=== PATIENT | female | born 1955 | race American Indian/Alaskan Native ===

== ENCOUNTER 2020-11-11 05:38 | Emergency (ER) | payer MEDICARE ==
--- NOTE | 2020-11-11 06:22 | Cat Scan Report ---
CT head without contrast INDICATION : Stroke symptoms. TECHNIQUE: Axial imaging performed from the skull apex through the skull base without the use of con trast. All CT scans at this location are performed using CT dose reduction for ALARA by means of aut omated exposure control. COMPARISON: None FINDINGS: Parenchyma: No mass, stroke or hemorrhage. Hyperdense left MCA sign. Physiologic calcification is see n at the basal ganglia. Ventricles: Ventricles are normal in size and appear symmetric. Soft tissues: Soft tissues including the orbits appear normal. Bones: No acute osseous abnormality. Sinuses: Sinuses and mastoid air cells are clear. IMPRESSION: Hyperdense left MCA sign. CODE STROKE: Time of Communication (MAINTENANCE SPECIALIST/CDT): 5:16 AM Central standard time. Licensed Practitioner Receiving Report: Dr. Liu Signer Name: Donnell Pelaez MD Signed: 11/11/2020 6:18 AM Workstation Name: [id number]
[2020-11-11] MEDS ORDERED: SODIUM CHLORIDE 0.9% 50 ML IVPB IV ONE (06:38)
[2020-11-11] MEDS ORDERED: ALTEPLASE 100 MG INJ KIT IV ONE ×2 (06:38)
--- NOTE | 2020-11-11 06:38 | Emergency Department Report ---
ED Neuro Deficit HPI - General Stated Complaint: UNRESPONDSIVE Time Seen by Provider: 11/11/20 05:45 Source: patient, EMS - History of Present Illness Initial Comments: 65-year-old female, history of hypertension, presents to ED with altered mental status. states they drove from [place] to [place] last night, evacuating the city due to [place]. He reports upon arrival to [place], patient was altered. Prior to this patient was speaking throughout the drive. Last known well time 5 AM. Patient does not appear to be moving her right side. Patient is nonverbal at this time. denies any history of CVA. Patient not taking any blood thinners. reports patient received COVID-19 vaccine, both doses, back in June 2020. -: This morning Last Observed Normal: 05:00 Location: speech, left arm, left leg Presenting Symptoms: Present: Weak/Paralyzed One Side, Altered Mental Status History of same: No Improves With: none Worsens With: none On Anticoagulants: No Treatments Prior to Arrival: none - Related Data Home Medications: Home Medications Medication Instructions Recorded Confirmed Last Taken Irbesartan/Hydrochlorothiazide 1 each PO QDAY 11/11/20 11/11/20 Unknown [Irbesartan-Hctz 150-12.5 mg Tb] Metoprolol Succinate [Kapspargo 50 mg PO QDAY 11/11/20 11/11/20 Unknown Sprinkle] Allergies/Adverse Reactions: Allergies Allergy/AdvReac Type Severity Reaction Status Date / Time No Known Allergies Allergy Unverified 11/11/20 06:45 ED Review of Systems ROS: Stated complaint: UNRESPONDSIVE Other details as noted in HPI Comment: Unobtainable due to pts medical conditions ED Past Medical Hx - Medications Home Medications: Home Medications Medication Instructions Recorded Confirmed Last Taken Type Irbesartan/Hydrochlorothiazide 1 each PO QDAY 11/11/20 11/11/20 Unknown History [Irbesartan-Hctz 150-12.5 mg Tb] Metoprolol Succinate [Kapspargo 50 mg PO QDAY 11/11/20 11/11/20 Unknown History Sprinkle] ED Neuro Physical Exam - General General appearance: lethargic Suspected Stroke: Yes - Head Head exam: Present: atraumatic, normocephalic - Eye Eye exam: Present: PERRL, other (leftward gaze deviation) - ENT ENT exam: Present: mucous membranes moist - Neck Neck exam: Present: normal inspection - Respiratory Respiratory exam: Present: normal lung sounds bilaterally. Absent: respiratory distress - Cardiovascular Cardiovascular Exam: Present: regular rate, normal rhythm - GI/Abdominal GI/Abdominal exam: Present: soft. Absent: distended, tenderness - Extremities Exam Extremities exam: Present: normal inspection - Neurological Exam Neurological exam: Present: altered - NIHSS Assessment Interval: 24 hours post onset of symptoms +-20 minutes 1a. Level of Consciousness: arousable/minor stimuli 1b. LOC Questions: answers no questions correctly 1c. LOC Commands: performs no tasks correctly 2. Best Gaze: forced deviation 3. Visual: no visual loss 4. Facial Palsy: minor paralysis 5b. Motor Arm Right: no movement 5a. Motor Arm Left: no drift 6a. Motor Leg Left: no drift 6b. Motor Leg Right: no movement 7. Limb Ataxia: absent 8. Sensory: mild/moderate sensory loss 9. Best Language: mute/global aphasia 10. Dysarthria: mute/anarrthric 11. Extinction/Inattention: visual/tactile inattention Total Score: 23 Stroke Severity: Severe Stroke - Skin Skin exam: Present: warm, dry, intact, normal color ED Course Vital Signs 11/11/20 11/11/20 11/11/20 06:10 06:15 06:31 Pulse Rate 72 84 Pulse Rate [ Left Arm] Respiratory 12 12 14 Rate Respiratory Rate [Left Arm] Blood Pressure 144/82 144/82 Blood Pressure [Left Arm] O2 Sat by Pulse 96 Oximetry O2 Sat by Pulse Oximetry [Left Arm] 11/11/20 11/11/20 11/11/20 06:45 06:55 06:56 Pulse Rate 87 82 80 Pulse Rate [ Left Arm] Respiratory 17 Rate Respiratory Rate [Left Arm] Blood Pressure 133/92 130/85 130/85 Blood Pressure [Left Arm] O2 Sat by Pulse 98 Oximetry O2 Sat by Pulse Oximetry [Left Arm] 11/11/20 11/11/20 11/11/20 07:01 07:15 07:16 Pulse Rate 69 68 Pulse Rate [ 75 Left Arm] Respiratory 14 14 Rate Respiratory 17 Rate [Left Arm] Blood Pressure 130/85 123/79 Blood Pressure 136/83 [Left Arm] O2 Sat by Pulse 99 Oximetry O2 Sat by Pulse 98 Oximetry [Left Arm] 11/11/20 11/11/20 11/11/20 07:20 07:30 07:31 Pulse Rate 88 Pulse Rate [ 71 Left Arm] Respiratory 18 Rate Respiratory 18 Rate [Left Arm] Blood Pressure 140/83 Blood Pressure 127/70 [Left Arm] O2 Sat by Pulse 100 97 Oximetry O2 Sat by Pulse 98 Oximetry [Left Arm] 11/11/20 11/11/20 11/11/20 07:45 08:00 08:01 Pulse Rate 85 78 Pulse Rate [ 84 79 Left Arm] Respiratory 11 L 11 L Rate Respiratory 18 18 Rate [Left Arm] Blood Pressure 125/71 123/79 Blood Pressure 122/83 137/92 [Left Arm] O2 Sat by Pulse 98 Oximetry O2 Sat by Pulse 100 100 Oximetry [Left Arm] 11/11/20 11/11/20 11/11/20 08:05 08:15 08:30 Pulse Rate 72 75 Pulse Rate [ 52 L 59 L Left Arm] Respiratory 15 Rate Respiratory 14 15 Rate [Left Arm] Blood Pressure 141/98 Blood Pressure 141/98 139/73 [Left Arm] O2 Sat by Pulse 89 Oximetry O2 Sat by Pulse 100 99 Oximetry [Left Arm] 11/11/20 11/11/20 11/11/20 08:31 08:45 09:00 Pulse Rate 52 L 53 L Pulse Rate [ 80 57 L Left Arm] Respiratory 13 14 Rate Respiratory 14 14 Rate [Left Arm] Blood Pressure 153/78 128/73 Blood Pressure 128/73 145/71 [Left Arm] O2 Sat by Pulse 100 Oximetry O2 Sat by Pulse 100 100 Oximetry [Left Arm] 11/11/20 11/11/20 09:01 09:30 Pulse Rate 72 Pulse Rate [ 90 Left Arm] Respiratory 13 Rate Respiratory 18 Rate [Left Arm] Blood Pressure 145/71 Blood Pressure 128/67 [Left Arm] O2 Sat by Pulse 100 Oximetry O2 Sat by Pulse 100 Oximetry [Left Arm] - Reevaluation(s) Reevaluation #1: 11/11/20 06:36 at bedside, along with teleneurologist, Dr. Kemp. States last known well time was 5 AM. Will give TPA. Reevaluation #2: 11/11/20 08:41 Pt improving, showing movement in right leg. - Consultations Consultation #1: 11/11/20 08:39 [place] stroke team contacted. Spoke with Elizabeth Ray and Maximiliano. Looking for a bed for pt. Will call back. 11/11/20 08:50 Dr Ray states bed available at [facility]. Will contact [facility] [employer] to see if pt can be transported by helicopter. 11/11/20 08:57 Unable to fly secondary to weather. Patient will be transported by ground. - Lab Data Result diagrams: 11/11/20 06:17 11/11/20 06:17 Lab Results 11/11/20 11/11/20 11/11/20 Range/Units 06:17 06:17 06:17 WBC 5.9 (4.5-11.0) K/mm3 RBC 4.07 (3.65-5.03) M/mm3 Hgb 11.3 (10.1-14.3) gm/dl Hct 34.5 (30.3-42.9) % MCV 85 (79-97) fl MCH 28 (28-32) pg MCHC 33 (30-34) % RDW 14.0 (13.2-15.2) % Plt Count 187 (140-440) K/mm3 Lymph % (Auto) 20.9 (13.4-35.0) % [place] % (Auto) 7.0 (0.0-7.3) % Eos % (Auto) 0.5 (0.0-4.3) % Baso % (Auto) 0.7 (0.0-1.8) % Lymph # (Auto) 1.2 (1.2-5.4) K/mm3 [place] # (Auto) 0.4 (0.0-0.8) K/mm3 Eos # (Auto) 0.0 (0.0-0.4) K/mm3 Baso # (Auto) 0.0 (0.0-0.1) K/mm3 Seg Neutrophils % 70.9 H (40.0-70.0) % Seg Neutrophils # 4.2 (1.8-7.7) K/mm3 PT 13.7 (12.2-14.9) Sec. INR 0.99 (0.87-1.13) APTT 28.6 (24.2-36.6) Sec. Thrombin Time 16.7 (15.1-19.6) Sec. Sodium 138 (137-145) mmol/L Potassium 3.8 (3.6-5.0) mmol/L Chloride 101.2 (98-107) mmol/L Carbon Dioxide 26 (22-30) mmol/L Anion Gap 15 mmol/L BUN 20 H (7-17) mg/dL Creatinine 0.8 (0.6-1.2) mg/dL Estimated GFR > 60 ml/min BUN/Creatinine Ratio 25 % Glucose 120 H (65-100) mg/dL Calcium 9.7 (8.4-10.2) mg/dL Total Bilirubin 0.50 (0.1-1.2) mg/dL AST 23 (5-40) units/L ALT 12 (7-56) units/L Alkaline Phosphatase 75 (35-129) units/L Ammonia (25-60) umol/L Total Creatine Kinase 276 H (30-135) units/L CK-MB (CK-2) 5.9 H (0.0-4.0) ng/mL CK-MB (CK-2) Rel Index 2.1 (0-4) Troponin T 0.228 H* (0.00-0.029) ng/mL Total Protein 7.4 (6.3-8.2) g/dL Albumin 4.6 (3.9-5) g/dL Albumin/Globulin Ratio 1.6 % Triglycerides 59 (2-149) mg/dL Cholesterol 215 H (50-199) mg/dL LDL Cholesterol Direct 124 (50-130) mg/dL HDL Cholesterol 98 H (40-59) mg/dL Cholesterol/HDL Ratio 2.19 % Plasma/Serum Alcohol (0-0.07) % 11/11/20 11/11/20 Range/Units 06:17 06:17 WBC (4.5-11.0) K/mm3 RBC (3.65-5.03) M/mm3 Hgb (10.1-14.3) gm/dl Hct (30.3-42.9) % MCV (79-97) fl MCH (28-32) pg MCHC (30-34) % RDW (13.2-15.2) % Plt Count (140-440) K/mm3 Lymph % (Auto) (13.4-35.0) % [place] % (Auto) (0.0-7.3) % Eos % (Auto) (0.0-4.3) % Baso % (Auto) (0.0-1.8) % Lymph # (Auto) (1.2-5.4) K/mm3 [place] # (Auto) (0.0-0.8) K/mm3 Eos # (Auto) (0.0-0.4) K/mm3 Baso # (Auto) (0.0-0.1) K/mm3 Seg Neutrophils % (40.0-70.0) % Seg Neutrophils # (1.8-7.7) K/mm3 PT (12.2-14.9) Sec. INR (0.87-1.13) APTT (24.2-36.6) Sec. Thrombin Time (15.1-19.6) Sec. Sodium (137-145) mmol/L Potassium (3.6-5.0) mmol/L Chloride (98-107) mmol/L Carbon Dioxide (22-30) mmol/L Anion Gap mmol/L BUN (7-17) mg/dL Creatinine (0.6-1.2) mg/dL Estimated GFR ml/min BUN/Creatinine Ratio % Glucose (65-100) mg/dL Calcium (8.4-10.2) mg/dL Total Bilirubin (0.1-1.2) mg/dL AST (5-40) units/L ALT (7-56) units/L Alkaline Phosphatase (35-129) units/L Ammonia 33.0 (25-60) umol/L Total Creatine Kinase (30-135) units/L CK-MB (CK-2) (0.0-4.0) ng/mL CK-MB (CK-2) Rel Index (0-4) Troponin T (0.00-0.029) ng/mL Total Protein (6.3-8.2) g/dL Albumin (3.9-5) g/dL Albumin/Globulin Ratio % Triglycerides (2-149) mg/dL Cholesterol (50-199) mg/dL LDL Cholesterol Direct (50-130) mg/dL HDL Cholesterol (40-59) mg/dL Cholesterol/HDL Ratio % Plasma/Serum Alcohol < 0.01 (0-0.07) % - EKG Data -: EKG Interpreted by Co EKG shows normal: sinus rhythm, axis, QRS complexes, ST-T waves Rate: normal Interpretation: no acute changes, other (prolonged QT) - Radiology Data Radiology results: report reviewed, image reviewed - Medical Decision Making 65-year-old female presents to ED with altered mental status. Patient found to have left MCA stroke. Patient presented within the window, so TPA was administered. CTA showed M1 segment occlusion. Patient will be transferred to [facility] for interventional procedure. Accepting physician, Dr. Ray. Prior to transport arrival, patient showed some evidence that she was improving, with movement of her right leg. - Differential Diagnosis CVA Critical Care Time: Yes Critical care time in (mins) excluding proc time.: 35 Critical care attestation.: If time is entered above; I have spent that time in minutes in the direct care of this critically ill patient, excluding procedure time. Critical Care Time: 35 min ED Disposition Clinical Impression: Acute CVA (cerebrovascular accident), Elevated troponin Disposition: 02 SHORT TERM HOSPITAL Is pt being admited?: No Condition: Stable Referrals: PRIMARY CARE, [Primary Care Provider] - 3-5 Days Time of Disposition: 09:01
--- NOTE | 2020-11-11 06:44 | Consultation ---
History of Present Illness Consult date: 11/11/20 Medications and Allergies Active Meds: Active Medications Alteplase, Recombinant (Alteplase 100 Mg Inj Kit) 7.4 mg 0.09 mg/kg (7.4 mg) IV ONCE ONE; Protocol Stop: 11/11/20 06:39 Alteplase, Recombinant (Alteplase 100 Mg Inj Kit) 66.2 mg 0.81 mg/kg (66.2 mg) IV ONCE ONE; Protocol Stop: 11/11/20 06:39 Sodium Chloride (Sodium Chloride 0.9% 50 Ml Ivpb) 50 ml IV ONCE ONE Stop: 11/11/20 06:39 Assessment and Plan [facility] Consult Note # Demographics Consult Type: Acute Stroke Level 2 (4.5-24 hrs) Patient Location: Emergency Room First Name: Naima Last Name: Andrew Date of : 1955 Age: 65 Gender: Female Facility: [facility] Time of Initial Page (Eastern Time): 11/11/2020, 05:52 Time of Return Call (Eastern Time): 11/11/2020, 05:53 # HPI History: 65 yo woman is currently on trip with . Presented to ED unresponsive, pinpoint pupils. History limited until arrived later. Per around 5:00 am she got to her destination and was able to get into the house then became less responsive, unable to walk. On exam she was noted to be aphasic, right hemiparessis, left gaze deviation. Last Known Normal: I have collected independent history specific to time last normal or last known well. We have collaborated with the provider and at this time, we have the most current timeline with the information that is available. 0500 Possible Thrombolytic candidate: not on warfarin or NOACs no intracranial hemorrhage history no recent major surgery no known active major internal bleeding no known blood disorders # Scores Time of exam and NIHSS (Eastern Time): 11/11/2020, 06:32 Level of Consciousness 1a: [0] = Alert; keenly responsive LOC Questions 1b: [2] = Answers neither correctly LOC Commands 1c: [2] = Performs neither correctly Best Gaze 2: [2] = Forced deviation Visual 3: [2] = Complete hemianopia Facial Palsy 4: [1] = Minor paralysis Motor Arm Left 5a: [0] = No drift Motor Arm Right 5b: [4] = No movement Motor Leg Left 6a: [0] = No drift Motor Leg Right 6b: [4] = No movement Limb Ataxia 7: [0] = Absent Sensory 8: [1] = [id number] sensory loss Best Language 9: [3] = Mute Dysarthria 10: [1] = [id number] dysarthria Extinction and Inattention 11: [1] = Visual, tactile, auditory, spatial, or personal inattention NIHSS Total: 23 # Exam SBP: 144 DBP: 82 Additional Neurologic Exam: Patient minimally responsive, teleneurology exam not able to be performed. # PMH-FH-SH Past Medical History: hypertension # Assessment Impression: Ischemic Stroke (Acute) Aphasic with right hemiparesis, consistent with acute left MCA stroke. # Plan Thrombolytic/Intervention: IV Thrombolysis and IA Intervention Therapy Thrombolytic Dosing: IV alteplase 0.9 mg/kg, max dose 90 mg; 10% of dose given over 1 minute IVP, remaining 90% given as infusion over 1 hour Time IV Thrombolytic Recommended ( Time): 11/11/2020, 06:35 Target Blood Pressure: SBP < 180 DBP < 105 Labs: hemoglobin A1c lipid panel Imaging: (urgency: STAT): CT Angiogram Head and CT Angiogram Neck AND call back with results if abnormal Imaging: (urgency: routine): CT Angiogram Head and CT Angiogram Neck AND call back with results if abnormal Diagnostic Test: echo with bubble study Therapy/Evaluation: NPO until swallow evaluation PT/OT evaluation speech/swallow consultation DVT Prophylaxis: SCD contraindication Thrombolytic Administration Recommendations: I reviewed the risks/benefits/alternatives of IV thrombolytic therapy with the patient. They understand there is potential of life threatening hemorrhage from IV thrombolysis. I stated that I believe benefits outweighs risk. They wish to proceed with IV thrombolytic therapy. I have collected independent history specific to time last normal or last known well. We have collaborated with the ED provider and at this time, we have the most current timeline with the information that is available. BP goal< 180/105 for 24hrs post Thrombolytic administration Use Labetolol 10-20mg IV prn or Nicardipine gtt to maintain BP parameters Other: telemetry monitoring I have discussed my recommendations with the referring provider Additional Recommendations: Proceed with IV tpa Stat CTA head and neck, if evidence of LVO will need transfer to thrombectomy capable facility # Logistics Telemedicine: Interactive 2 way audio and visual telecommunication technology was utilized during this visit
[2020-11-11 07:01] LABS: Basophils % (Auto) 0.7 % (0.0-1.8); Eosinophils % (Auto) 0.5 % (0.0-4.3); Hematocrit 34.5 % (30.3-42.9); Hemoglobin 11.3 gm/dl (10.1-14.3); Lymphocytes # (Auto) 1.2 K/mm3 (1.2-5.4); Lymphocytes % (Auto) 20.9 % (13.4-35.0); Mean Corpuscular HGB Conc 33 % (30-34); Mean Corpuscular Volume 85 fl (79-97); Monocytes # (Auto) 0.4 K/mm3 (0.0-0.8); Platelet Count 187 K/mm3 (140-440); Red Blood Count 4.07 M/mm3 (3.65-5.03)
[2020-11-11 07:07] LABS: Creatine Kinase MB 5.9 ng/mL (0.0-4.0)
--- NOTE | 2020-11-11 07:09 | XRay Report ---
CHEST 1 VIEW 11/11/2020 5:58 AM INDICATION / CLINICAL INFORMATION: AMS. COMPARISON: None available. FINDINGS: SUPPORT DEVICES: None. HEART / MEDIASTINUM: No significant abnormality. LUNGS / PLEURA: No significant pulmonary or pleural abnormality. No pneumothorax. ADDITIONAL FINDINGS: No significant additional findings. IMPRESSION: No acute abnormality. Signer Name: Donnell Pelaez MD Signed: 11/11/2020 7:05 AM Workstation Name: [id number]
[2020-11-11 07:10] LABS: Alanine Aminotransferase 12 units/L (7-56); Albumin 4.6 g/dL (3.9-5); BUN/Creatinine Ratio 25; Blood Urea Nitrogen 20 mg/dL (7-17); Calcium 9.7 mg/dL (8.4-10.2); Hemolysis Index 7
[2020-11-11 07:43] LABS: INR 0.99 (0.87-1.13); Partial Thromboplastin Time 28.6 Sec. (24.2-36.6); Thrombin Time 16.7 Sec. (15.1-19.6)
--- NOTE | 2020-11-11 08:31 | Cat Scan Report ---
CTA neck without and with intravenous contrast material CLINICAL HISTORY: stroke sx 100 ml omni 350 TECHNIQUE: Following acquisition of a timing bolus 0.625 mm thick contiguous axial scans were obtained from aort ic arch to the skull base during rapid bolus intravenous contrast infusion. In addition to evaluation of axial source images multiplanar reconstructions were produced and reviewed for this report. 3 araceli ne MIP reconstructions were produced and reviewed. Contrast dose report: Omnipaque 350: 100 ml, administered intravenously All CT examinations performed at this facility utilize modulated dose reduction, iterative reconstruc tion or weight-based dosing, as appropriate, to obtain a radiation dose which is as low as can reason ably be achieved. FINDINGS: Thoracic aorta:No abnormalities are identified along the course of the thoracic aorta..The origins of the great vessels have an unremarkable appearance. Brachiocephalic artery, left common carotid arter y origin and left subclavian artery all have an unremarkable appearance. Right carotid artery:No abnormalities are seen along the course of the RCCA, at the right carotid bif urcation or along the cervical portions of the MADDY. Left carotid artery: No abnormalities are noted along the course of the left common carotid artery, a t the left carotid bifurcation or along the course of the cervical segments of the LICA. Posterior circulation:The vertebral arteries have an unremarkable appearance. Both vertebral arteries contribute to the basilar artery origin. The basilar artery has an unremarkable appearance. The degree of stenosis, if any, is determined utilizing NASCET like criteria. In this case there is no indication of hemodynamically significant stenosis at the carotid bifurcations or elsewhere. Evaluation of the nonvascular soft tissue structures reveal no abnormality. There is no indication of cervical lymphadenopathy. No abnormalities are seen along the course of the airway. Visualized porti ons of the parotid glands and the submandibular salivary glands have a normal appearance. Thyroid gla nd has a normal appearance. Evaluation of the lung apices reveals no evidence of lung nodule or infil trate. Evaluation of the cervical spine is remarkable for mild degenerative changes without evidence of cent ral canal stenosis. IMPRESSION: 1. No indication of hemodynamically significant stenosis at the carotid bifurcations or elsewhere. CODE STROKE: Time of Communication (CUTTER OPERATOR ASBESTOS SHINGLE/CDT): 5620 Central standard time Licensed Practitioner Receiving Report: Dr. Santiago Signer Name: Meet Izquierdo MD Signed: 11/11/2020 8:26 AM Workstation Name: [id number]
--- NOTE | 2020-11-11 08:38 | Cat Scan Report ---
CTA head with intravenous contrast CLINICAL HISTORY: Right hemiparesis. TECHNIQUE: 0.625 mm thick contiguous axial scans were obtained from the skull base to the skull vertex during r apid bolus administration of intravenous contrast material. Multiplanar reconstructions were produced in the coronal and sagittal planes. In addition 3 plane MIP instructions were produced and reviewed for this report. The axial source images and reconstructed images were reviewed for this report. CONTRAST DOSE REPORT: Omnipaque 350: 100 ml administered intravenously. All CT scans at this location are performed using CT dose reduction for ALARA by means of automated e xposure control. FINDINGS: Internal carotid arteries:Katelyn, cavernous, opthalmic, clinoid and supraclinoid segments of the ICAs have an unremarkable appearance. Middle cerebral arteries: There is a filling defect within the M1 segment of the left middle cerebral artery extending from its point of origin extending peripherally over a distance of about 1.5 cm. Tr ezio contrast is seen along the posterior margin of this lesion. This represents a thromboembolic lesi on in the M1 segment of the left middle cerebral artery. The right middle cerebral artery has an unre markable appearance. Anterior cerebral arteries:Bilaterally symmetrical A1 segments are demonstrated. No abnormalities are seen along the course of the A2 segments or their visualized pericallosal branches. Vertebral arteries:Bilaterally symmetrical vertebral arteries are demonstrated. Both vertebral arteri es contribute to the basilar artery origin. Basilar artery:Basilar artery has an unremarkable appearance. Posterior cerebral arteries:Bilaterally symmetrical posterior cerebral arteries are identified. Dural sinuses: Dural venous sinuses are well demonstrated on this exam. There is no evidence of dural sinus thrombosis. IMPRESSION: 1. Thromboembolic lesion is identified in the M1 segment of the left middle cerebral artery as descri bed above. CODE STROKE: Time of Communication (ASSISTANT PRESSMAN/CDT): 0720 Central standard time Licensed Practitioner Receiving Report: Dr. Santiago of the [facility]. Signer Name: Meet Izquierdo MD Signed: 11/11/2020 8:34 AM Workstation Name: [id number]
[2020-11-11 09:04] LABS: Chol/HDL Ratio 2.19 %; HDL Cholesterol 98 mg/dL (40-59); LDL Cholesterol,Direct 124 mg/dL (50-130)
[2020-11-11 09:31] VITALS: BP 128/67
--- NOTE | 2020-11-11 19:00 | History and Physical Report ---
History of Present Illness Date of examination: 11/11/20 History of present illness: 65-year-old female, history of hypertension, presents to ED with altered mental status. states they drove from [place] to [place] last night, evacuating the city due to [place]. He reports upon arrival to [place], p atient was altered. Prior to this patient was speaking throughout the drive. Last known well time 5 AM. Patient does not appear to be moving her right side. Patient is nonverbal at this time. denies any history of CVA. Patient not taking any blood thinners. reports patient received COVID-19 vaccine, both doses, back in June 2020. -: This morning Last Observed Normal: 05:00 Location: speech, left arm, left leg Presenting Symptoms: Present: Weak/Paralyzed One Side, Altered Mental Status History of same: No Improves With: none Worsens With: none On Anticoagulants: No Treatments Prior to Arrival: none - Related Data Home Medications: Home Medications Medication Instructions Recorded Confirmed Last Taken Irbesartan/Hydrochlorothiazide 1 each PO QDAY 11/11/20 11/11/20 Unknown [Irbesartan-Hctz 150-12.5 mg Tb] Metoprolol Succinate [[place] 50 mg PO QDAY 11/11/20 11/11/20 Unknown Sprinkle] Allergies/Adverse Reactions: Allergies Allergy/AdvReac Type Severity Reaction Status Date / Time No Known Allergies Allergy Unverified 11/11/20 06:45 ED Review of Systems ROS: Stated complaint: UNRESPONDSIVE Other details as noted in HPI Comment: Unobtainable due to pts medical conditions ED Past Medical Hx - Medications Home Medications: Home Medications Medication Instructions Recorded Confirmed Last Taken Type Irbesartan/Hydrochlorothiazide 1 each PO QDAY 11/11/20 11/11/20 Unknown History [Irbesartan-Hctz 150-12.5 mg Tb] Metoprolol Succinate [[place] 50 mg PO QDAY 11/11/20 11/11/20 Unknown History Sprinkle] Medications and Allergies Allergies Allergy/AdvReac Type Severity Reaction Status Date / Time No Known Allergies Allergy Unverified 11/11/20 06:45 Home Medications Medication Instructions Recorded Confirmed Last Taken Type Irbesartan/Hydrochlorothiazide 1 each PO QDAY 11/11/20 11/11/20 Unknown History [Irbesartan-Hctz 150-12.5 mg Tb] Metoprolol Succinate [[place] 50 mg PO QDAY 11/11/20 11/11/20 Unknown History Sprinkle] Exam - Constitutional Vitals: Temp Pulse Resp BP Pulse Ox 90 18 128/67 100 11/11/20 09:30 11/11/20 09:30 11/11/20 09:30 11/11/20 09:30 HEART Score - HEART Score Troponin: Troponin T 0.228 ng/mL (0.00-0.029) H* 11/11/20 06:17 Results - Labs CBC & Chem 7: 11/11/20 06:17 11/11/20 06:17 Labs: Laboratory Last Values WBC 5.9 K/mm3 (4.5-11.0) 11/11/20 06:17 RBC 4.07 M/mm3 (3.65-5.03) 11/11/20 06:17 Hgb 11.3 gm/dl (10.1-14.3) 11/11/20 06:17 Hct 34.5 % (30.3-42.9) 11/11/20 06:17 MCV 85 fl (79-97) 11/11/20 06:17 MCH 28 pg (28-32) 11/11/20 06:17 MCHC 33 % (30-34) 11/11/20 06:17 RDW 14.0 % (13.2-15.2) 11/11/20 06:17 Plt Count 187 K/mm3 (140-440) 11/11/20 06:17 Lymph % (Auto) 20.9 % (13.4-35.0) 11/11/20 06:17 [place] % (Auto) 7.0 % (0.0-7.3) 11/11/20 06:17 Eos % (Auto) 0.5 % (0.0-4.3) 11/11/20 06:17 Baso % (Auto) 0.7 % (0.0-1.8) 11/11/20 06:17 Lymph # (Auto) 1.2 K/mm3 (1.2-5.4) 11/11/20 06:17 [place] # (Auto) 0.4 K/mm3 (0.0-0.8) 11/11/20 06:17 Eos # (Auto) 0.0 K/mm3 (0.0-0.4) 11/11/20 06:17 Baso # (Auto) 0.0 K/mm3 (0.0-0.1) 11/11/20 06:17 Seg Neutrophils % 70.9 % (40.0-70.0) H 11/11/20 06:17 Seg Neutrophils # 4.2 K/mm3 (1.8-7.7) 11/11/20 06:17 PT 13.7 Sec. (12.2-14.9) 11/11/20 06:17 INR 0.99 (0.87-1.13) 11/11/20 06:17 APTT 28.6 Sec. (24.2-36.6) 11/11/20 06:17 Thrombin Time 16.7 Sec. (15.1-19.6) 11/11/20 06:17 Sodium 138 mmol/L (137-145) 11/11/20 06:17 Potassium 3.8 mmol/L (3.6-5.0) 11/11/20 06:17 Chloride 101.2 mmol/L (98-107) 11/11/20 06:17 Carbon Dioxide 26 mmol/L (22-30) 11/11/20 06:17 Anion Gap 15 mmol/L 11/11/20 06:17 BUN 20 mg/dL (7-17) H 11/11/20 06:17 Creatinine 0.8 mg/dL (0.6-1.2) 11/11/20 06:17 Estimated GFR > 60 ml/min 11/11/20 06:17 BUN/Creatinine Ratio 25 % 11/11/20 06:17 Glucose 120 mg/dL (65-100) H 11/11/20 06:17 Calcium 9.7 mg/dL (8.4-10.2) 11/11/20 06:17 Total Bilirubin 0.50 mg/dL (0.1-1.2) 11/11/20 06:17 AST 23 units/L (5-40) 11/11/20 06:17 ALT 12 units/L (7-56) 11/11/20 06:17 Alkaline Phosphatase 75 units/L (35-129) 11/11/20 06:17 Ammonia 33.0 umol/L (25-60) 11/11/20 06:17 Total Creatine Kinase 276 units/L (30-135) H 11/11/20 06:17 CK-MB (CK-2) 5.9 ng/mL (0.0-4.0) H 11/11/20 06:17 CK-MB (CK-2) Rel Index 2.1 (0-4) 11/11/20 06:17 Troponin T 0.228 ng/mL (0.00-0.029) H* 11/11/20 06:17 Total Protein 7.4 g/dL (6.3-8.2) 11/11/20 06:17 Albumin 4.6 g/dL (3.9-5) 11/11/20 06:17 Albumin/Globulin Ratio 1.6 % 11/11/20 06:17 Triglycerides 59 mg/dL (2-149) 11/11/20 06:17 Cholesterol 215 mg/dL (50-199) H 11/11/20 06:17 LDL Cholesterol Direct 124 mg/dL (50-130) 11/11/20 06:17 HDL Cholesterol 98 mg/dL (40-59) H 11/11/20 06:17 Cholesterol/HDL Ratio 2.19 % 11/11/20 06:17 Plasma/Serum Alcohol < 0.01 % (0-0.07) 11/11/20 06:17
--- NOTE | 2020-11-13 08:54 | Electrocardiograph Report ---
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
== END 2020-11-11 09:30 | disposition short-term general hospital (02) ==
LOC: ED 05:38
DX: I63.9 Cerebral infarction, unspecified (principal); R77.8 Other specified abnormalities of plasma proteins
CPT/HCPCS: 36415; 37195; 70450; 70496; 70498; 71045; 80053; 80061; 82140; 82550; 82553; 84484; 85025; 85610; 85670; 85730; 93005; 96365; 99291; J2997; Q9967; 80320; G0480